=== PATIENT | male | born 1985 | race Caucasian/White ===

== ENCOUNTER 2016-12-15 08:39 | Emergency (ER) | payer OTHER ==
[~2016-12-15] VITALS: Ht 180.3 cm; Wt 90.0 kg
[2016-12-15] MEDS ORDERED: KETOROLAC 30 MG/ML VIAL (J1885) IV ONE (09:00)
[2016-12-15] MEDS ORDERED: ONDANSETRON 4MG/2ML VIAL (J2405) IV ONE (09:00)
[2016-12-15 09:33] LABS: BASO % 0.6 % (0.0-1.0); EOS # 0.1 K/mm3 (0.0-0.50); EOS % 1.6 % (0.0-3.0); LARGE UNSTAINED CELL # 0.1 K/mm3 (0.0-0.4); LARGE UNSTAINED CELL % 1.3 % (0.0-4.0); LYMPH # 1.5 K/mm3 (1.5-6.5); MEAN CORPUSCULAR HEMOGLOBIN 28.6 pg (27.0-33.0); MEAN CORPUSCULAR HGB CONC 32.9 g/dl (32.0-36.5); MEAN CORPUSCULAR VOLUME 86.9 fl (80.0-96.0); MONO # 0.2 K/mm3 (0.0-0.8); MONO % 5.5 % (0.0-5.0); NEUTROPHILS # 2.5 K/mm3 (1.8-7.7); NEUTROPHILS % 57.9 % (36.0-66.0); PLATELET COUNT, AUTOMATED 162 k/mm3 (150-450); RED CELL DISTRIBUTION WIDTH 13.4 % (11.5-14.5); WHITE BLOOD COUNT 4.4 K/mm3 (4.0-10.0)
[2016-12-15 09:54] LABS: ALBUMIN 4.3 GM/DL (3.2-5.2); ALBUMIN/GLOBULIN RATIO 1.39 (1.00-1.93); ALKALINE PHOSPHATASE 117 U/L (45-117); ALT/SGPT 23 U/L (12-78); ANION GAP 7 MEQ/L (8-16); AST/SGOT 14 U/L (15-37); BILIRUBIN,DIRECT 0.1 MG/DL (0.0-0.2); BILIRUBIN,TOTAL 0.4 MG/DL (0.2-1.0); BLOOD UREA NITROGEN 6 MG/DL (7-18); CARBON DIOXIDE LEVEL 29 MEQ/L (21-32); CHLORIDE LEVEL 107 MEQ/L (98-107); CREATININE FOR GFR 0.97 MG/DL (0.70-1.30); GLOMERULAR FILTRATION RATE > 60.0 (>60); GLUCOSE, FASTING 96 MG/DL (70-105); POTASSIUM SERUM 4.1 MEQ/L (3.5-5.1); SODIUM LEVEL 143 MEQ/L (136-145); TOTAL PROTEIN 7.4 GM/DL (6.4-8.2)
--- NOTE | 2016-12-15 10:46 | REP ---
CT abdomen and pelvis without IV or oral contrast: Renal stone protocol. History: Right lower quadrant pain, sudden onset, rule out renal colic. No comparison study. Findings: Preliminary digital metal moulder radiograph demonstrates an unremarkable bowel gas pattern. The lung bases are clear. There is no evidence of pleural effusion or upper abdominal ascites. The liver and the spleen are normal in size, homogeneous in texture. The gallbladder is unremarkable. No pancreatic abnormality is appreciated. The adrenal glands are normal bilaterally. There is an intrarenal calculus in the lower pole of the left kidney measuring 3 mm in greatest diameter. There is mild left-sided hydronephrosis. No ureteral calculus is seen on the left. No ureteral dilation is observed. No intrarenal calculus is seen on the right. No right-sided hydronephrosis is seen. Urinary bladder is unremarkable. No abdominal wall defect is seen. There is opaque ingested material in the cecum and partially filling the appendix. No appendiceal inflammation is seen. Impression: Intrarenal calculus lower pole left kidney 3 mm in size. Mild dilation of the left renal pelvis. Mild left hydronephrosis. No etiology seen. No ureteral calculus noted on either side. Normal appendix seen. Opaque ingested material in the cecum, appendix, and rectum. Signed by Sorin العراقي MD 12/15/2016 03:20 P
[2016-12-15] MEDS ORDERED: IBUP-1022 PO (10:49)
[2016-12-15 10:53] VITALS: BP 109/65
== END 2016-12-15 11:06 | disposition home or self-care (01) ==
LOC: M ED 08:39
DX: R10.31 Right lower quadrant pain (principal); R11.0 Nausea; R19.7 Diarrhea, unspecified; Z85.47 Personal history of malignant neoplasm of testis; Z88.0 Allergy status to penicillin
CPT/HCPCS: 74176; 80048; 80076; 81001; 83690; 85025; 87086; 96374; 96375; 99283; J1885; J2405

== ENCOUNTER 2022-03-29 08:05 | Emergency (ER) | payer OTHER ==
[~2022-03-29] VITALS: Ht 177.8 cm; Wt 100.5 kg
[~2022-03-29 08:05] MED LIST: IBUP-1022 PO
[2022-03-29] MEDS ORDERED: METH4PACK (08:11)
[2022-03-29] MEDS ORDERED: GABAPENTIN 100 MG CAP PO ONE (09:30)
[2022-03-29 09:53] LABS: BASO # 0.1 10^3/uL (0.0-0.2); BASO % 0.7 % (0.0-1.0); EOS # 0.1 10^3/uL (0.0-0.5); EOS % 0.8 % (0.0-3.0); HEMATOCRIT 46.4 % (42.0-52.0); HEMOGLOBIN 15.1 g/dl (13.5-17.5); LYMPH # 2.2 10^3/uL (1.5-5.0); LYMPH % 23.9 % (24.0-44.0); MEAN CORPUSCULAR HGB CONC 32.5 g/dl (32.0-36.5); MEAN CORPUSCULAR VOLUME 85.9 fl (80.0-96.0); MONO # 0.6 10^3/uL (0.0-0.8); MONO % 6.1 % (2.0-8.0); NEUTROPHILS # 6.2 10^3/uL (1.5-8.5); PLATELET COUNT, AUTOMATED 204 10^3/uL (150-450); WHITE BLOOD COUNT 9.1 10^3/uL (4.0-10.0)
[2022-03-29 10:25] LABS: MAGNESIUM LEVEL 1.9 MG/DL (1.8-2.4)
[2022-03-29 10:27] LABS: BLOOD UREA NITROGEN 15 MG/DL (9-23); CALCIUM LEVEL 9.3 MG/DL (8.5-10.1); CARBON DIOXIDE LEVEL 28 MMOL/L (20-31); CHLORIDE LEVEL 103 MMOL/L (98-107); CREATININE FOR GFR 0.96 MG/DL (0.70-1.30); GLOMERULAR FILTRATION RATE > 60.0 (>60); GLUCOSE, FASTING 95 MG/DL (60-100); POTASSIUM SERUM 4.2 MMOL/L (3.5-5.1); SODIUM LEVEL 140 MMOL/L (136-145)
[2022-03-29] MEDS ORDERED: GABA-1171 PO (10:57)
[2022-03-29 11:17] VITALS: BP 130/78
== END 2022-03-29 11:20 | disposition home or self-care (01) ==
LOC: M ED 08:05
DX: R20.2 Paresthesia of skin (principal); Z85.47 Personal history of malignant neoplasm of testis; Z88.0 Allergy status to penicillin

== ENCOUNTER 2022-06-28 07:35 | Emergency (ER) | payer OTHER ==
[~2022-06-28] VITALS: Ht 177.8 cm; Wt 100.6 kg
[~2022-06-28 07:35] MED LIST changes: +GABA-1171 PO; +METH4PACK
[2022-06-28] MEDS ORDERED: KETO10TAB PO (08:51)
[2022-06-28 09:05] VITALS: BP 115/81
== END 2022-06-28 09:15 | disposition home or self-care (01) ==
LOC: M ED 07:35
DX: M54.50 Low back pain, unspecified (principal); Z85.47 Personal history of malignant neoplasm of testis; F17.200 Nicotine dependence, unspecified, uncomplicated; Z88.0 Allergy status to penicillin

== ENCOUNTER 2023-03-06 22:03 | Emergency (ER) | payer OTHER ==
[~2023-03-06] VITALS: Ht 177.8 cm; Wt 99.5 kg
[~2023-03-06 22:03] MED LIST changes: +KETO10TAB PO
[2023-03-06 22:04] VITALS: BP 136/82; TEMP 99.3; O2SAT 96
== END 2023-03-07 01:03 | disposition left against medical advice (07) ==
LOC: M ED 22:03
DX: Z53.21 Procedure and treatment not carried out due to patient leaving prior to being seen by health care provider (principal)